=== PATIENT | male | born 1995 | race Caucasian/White ===

== ENCOUNTER 2023-11-13 10:55 | Emergency (ER) | payer OTHER ==
[~2023-11-13] VITALS: Ht 188 cm; Wt 90.7 kg
[2023-11-13] MEDS ORDERED: DEXAMETHASONE SOD PHOSPHATE 10 MG INJ ONE (12:11)
[2023-11-13] MEDS: DEXAMETHASONE SOD PHOSPHATE 4 MG INJ IM ONE (12:16)
[2023-11-13 12:18] VITALS: BP 136/75; TEMP 98.1; O2SAT 97
== END 2023-11-13 12:38 | disposition home or self-care (01) ==
LOC: ER 10:55
DX: L25.9 Unspecified contact dermatitis, unspecified cause (principal)
CPT/HCPCS: 99283; 96372; J1100; A4606; A4663

== ENCOUNTER 2024-11-29 10:12 | Emergency (ER) | payer MEDICAID, OTHER ==
[~2024-11-29] VITALS: Ht 188 cm; Wt 97.5 kg
[2024-11-29] MEDS ORDERED: LORAZEPAM 1 MG TABLET ONE (10:45)
[2024-11-29] MEDS: LORAZEPAM 0.5 MG TABLET PO ONE (10:51)
[2024-11-29] MEDS ORDERED: LORA0.5T48 PO (10:56)
[2024-11-29 11:05] VITALS: BP 139/73; O2SAT 99
== END 2024-11-29 11:07 | disposition home or self-care (01) ==
LOC: ER 10:12
DX: F41.9 Anxiety disorder, unspecified (principal); G47.00 Insomnia, unspecified; F14.10 Cocaine abuse, uncomplicated; F31.9 Bipolar disorder, unspecified; Z76.0 Encounter for issue of repeat prescription
CPT/HCPCS: A4606; A4663

== ENCOUNTER 2025-02-04 13:54 | Emergency (ER) | payer MEDICAID ==
[~2025-02-04] VITALS: Ht 185.4 cm; Wt 90.7 kg
[~2025-02-04 13:54] MED LIST: LORA0.5T48 PO
[2025-02-04] MEDS ORDERED: LURA20TA PO (13:58)
[2025-02-04] MEDS ORDERED: CLOB15CR5 TP (15:02)
[2025-02-04] MEDS ORDERED: DEXAMETHASONE SOD PHOSPHATE 4 MG INJ ONE (15:06)
[2025-02-04] MEDS: DEXAMETHASONE SOD PHOSPHATE 4 MG INJ IM ONE (15:09)
[2025-02-04 15:15] VITALS: BP 112/71; TEMP 98.6; O2SAT 98
== END 2025-02-04 15:18 | disposition home or self-care (01) ==
LOC: ER 13:54
DX: L25.9 Unspecified contact dermatitis, unspecified cause (principal); F14.10 Cocaine abuse, uncomplicated; F41.9 Anxiety disorder, unspecified; F31.9 Bipolar disorder, unspecified
CPT/HCPCS: 99283; 96372; J1100; A4606; A4663

== ENCOUNTER 2025-02-06 11:40 | Emergency (ER) | payer MEDICAID ==
[~2025-02-06] VITALS: Ht 188 cm; Wt 90.7 kg
[~2025-02-06 11:40] MED LIST changes: +CLOB15CR5 TP; +LURA20TA PO
[2025-02-06] MEDS ORDERED: DEXAMETHASONE SOD PHOSPHATE 4 MG INJ ONE (12:22)
[2025-02-06] MEDS ORDERED: HYDR-501 PO (12:26)
[2025-02-06] MEDS: DEXAMETHASONE SOD PHOSPHATE 4 MG INJ IM ONE (12:26)
[2025-02-06] MEDS ORDERED: METH4TAB21 PO (12:26)
[2025-02-06 12:38] VITALS: BP 132/84; O2SAT 99
== END 2025-02-06 12:39 | disposition home or self-care (01) ==
LOC: ER 11:40
DX: L25.9 Unspecified contact dermatitis, unspecified cause (principal); F32.A Depression, unspecified
CPT/HCPCS: 99283; 96372; J1100; A4606; A4663